=== PATIENT | female | born 1970 | race Hispanic/Latino ===

== ENCOUNTER 2023-09-29 07:57 | Day surgery (SDC) | payer BC ==
[~2023-09-29] VITALS: Ht 147.3 cm; Wt 59.3 kg
[~2023-09-29 07:57] MED LIST: COZAAR25 MG PO; GABAPENTIN100 MG PO; IBLOOD GLUCOSE TEST STRIP 1 EA TEST VI PRN; LACTATED RINGER'S 1,000 ML IV SCH; LIDOCAINE HCL 1% 5 ML SDV INJ ONE; MIDAZOLAM HCL 5 MG/5 ML VIAL IV PRN; fentaNYL citrate 100 MCG/2 ML VIAL IV PRN
[2023-09-29 08:07] VITALS: BP 157/78
--- NOTE | 2023-09-29 08:36 | NUR ---
0810 ASKED PT IF SHE WANTED TO USE AN FLASK CARRIER DUE TO PT BEING SERBIAN SPEAKING. PT DECLINED AND REQUESTED TO USE HER DAUGHTER TO INTERPRET. USED DAUGHTER TO INTERPRET CHECK IN PROCESS.
--- NOTE | 2023-09-29 09:34 | NUR ---
0934 UPDATED PATIENT ON WAIT TIME, PT AND FAMILY UNDERSTANDING.
[2023-09-29] MEDS ORDERED: MIDAZOLAM HCL 5 MG/5 ML VIAL ONE (10:23)
[2023-09-29] MEDS ORDERED: fentaNYL citrate 100 MCG/2 ML VIAL ONE (10:23)
--- NOTE | 2023-09-29 10:57 | NUR ---
09/29/23 Al[place]7 Karen English 1051-PATIENT ARRIVED TO PACU ON 2L NC RR EVEN. PATIENT REACTIVE TO VERBAL STIMULI OPENING EYES REMAINS VERY DROWSY DOZES BACK TO SLEEP. PATIENT LAYING LEFT LATERAL ABDOMEN SOFT. IVF INFUSING.
[2023-09-29 11:43] VITALS: BP 126/86
--- NOTE | 2023-09-29 13:54 | OR ---
[facility] [address], [place] [address] Signed DATE OF OPERATION: 09/29/2023 SURGEON: Sujata Perea MD PREOPERATIVE DIAGNOSIS: Initial screening colonoscopy. POSTOPERATIVE DIAGNOSES: 1. 3 mm polypoid lesion at splenic flexure. 2. Minimal to moderate internal hemorrhoids. PROCEDURE: Colonoscopy with hot biopsy. ESTIMATED BLOOD LOSS: None. INDICATIONS: Alena is a 52-year-old female, who is bilingual along with her daughter. They had been asked to see me in the office for Alena's initial screening colonoscopy. She has no lower GI complaints. There is no family history of colon cancer or polyps. I had given them brochures written in [place]. We looked at that carefully page by page. They understand the nature of the test. There is risk including, but not limited to gas bloating, crampy abdominal pain, bleeding, perforation requiring surgery, and missed diagnosis. We also reviewed the written instructions for the bowel prep line by line. We asked her to hold aspirin 3 days prior to the procedure. She can take her other home medications. She understands an adult person has to take home afterwards. It looks like her daughter Taylor is waiting for her. She had expressed understanding and wished to proceed. DESCRIPTION OF PROCEDURE: Alena was taken into our endoscopy suite and placed in the left lateral decubitus position. She was given a total of 125 mcg of fentanyl and 6 mg of Versed to cover the case. A digital rectal exam was performed and this was unremarkable. She had no external hemorrhoids. There was good sphincter tone. There were no masses. The adult colonoscope had been introduced and advanced under direct visualization of the camera. We were looking down the right colon, but we needed some extra sedation and abdominal compression in order to get the scope down into the cecum itself. Her prep was quite excellent. We could easily see the appendiceal orifice and the ileocecal valve. The scope was then slowly withdrawn. She had a tiny 3 mm polypoid lesion at the splenic Electronically Signed By: SUJATA PEREA MD 09/29/23 1354 PATIENT NAME: ALENA NY OPERATIVE REPORT DATE OF : 70 REPORT #: [id number] PHYSICIAN: SUJATA PEREA MD PCP: ISABELA QUIÑONEZ REPORT IS CONFIDENTIAL AND NOT TO BE RELEASED WITHOUT AUTHORIZATION [facility] [address] [place] [id number] Signed flexure. We went ahead and removed that with hot biopsy forceps for pathologic review. There was no diverticula. Once in the rectum, the scope was retroflexed and she has minimal to moderate internal hemorrhoids. Sujata Perea MD ALB/MODL /[id number] cc: MD Dr. Pedro Caldwell Copies: SUJATA PEREA MD ~ Electronically Signed By: SUJATA PEREA MD 09/29/23 1354 PATIENT NAME: ALENA NY OPERATIVE REPORT DATE OF : 70 REPORT #: [id number] PHYSICIAN: SUJATA PEREA MD PCP: ISABELA QUIÑONEZ REPORT IS CONFIDENTIAL AND NOT TO BE RELEASED WITHOUT AUTHORIZATION
--- NOTE | 2023-10-03 11:42 | PATH ---
[facility] [address] [place], [place] [address] Signed SPECIMEN(S): A SPLENIC FLEXURE COLON POLYP SPECIMEN SOURCE: A. SPLENIC FLEXURE COLON POLYP CLINICAL HISTORY: Screening; post DX: Polyp at splenic flexure FINAL PATHOLOGIC DIAGNOSIS: Splenic flexure polyp, biopsy: - Benign lymphoid polyp. AMB MICROSCOPIC EXAMINATION: Histologic sections of all submitted blocks are examined by light microscopy. These findings, together with the gross examination, support the pathologic diagnosis. GROSS DESCRIPTION: The specimen, labeled and designated "Ventura Sanz, splenic flexure polyp," is received in formalin and consists of one foley soft tissue fragment, 0.1 cm. Entirely submitted in (A1). JS (under the direct supervision of a pathologist) The Gross Description was prepared using a voice recognition system. The report was reviewed for accuracy; however, sound-alike word errors, addition and/or deletions may occur. If there is any question about this report, please contact Client Services. ADDITIONAL NOTES: Immunohistochemical and/or in situ hybridization studies if performed in this case included appropriate positive controls that reacted as expected. This test was developed and its performance characteristics determined by [facility]. It has not been cleared or approved by the U.S. Food and Drug Administration. The FDA has determined that such clearance or approval is not necessary. This test is used for clinical purposes. It should not be regarded as investigational or for research. [facility] is certified under the Clinical Laboratory Improvement Amendments of 1988 (CLIA) as qualified to perform high complexity clinical laboratory testing. PATIENT NAME: ALENA NY PATHOLOGY DATE OF : 70 REPORT #: [id number] PHYSICIAN: GI [facility] PCP: ISABELA QUIÑONEZ REPORT IS CONFIDENTIAL AND NOT TO BE RELEASED WITHOUT AUTHORIZATION [address] [place], [place] [address] Signed PERFORMING LABORATORY: Technical component was performed by [facility], [address] [place] [address] (CLIA# [id number]). Professional interpretation was performed by [facility] [address] [id number] Diagnostician: Taylor Padilla MD Pathologist Electronically Signed 10/03/2023 Copies: ~ PATIENT NAME: ALENA NY PATHOLOGY DATE OF : 70 REPORT #: [id number] PHYSICIAN: GI SLATER PCP: ISABELA QUIÑONEZ REPORT IS CONFIDENTIAL AND NOT TO BE RELEASED WITHOUT AUTHORIZATION
== END 2023-09-29 11:50 | disposition home or self-care (01) ==
LOC: DS 07:57
PROVIDERS: ATTEND Colon & Rectal Surgery
PROC: 0DBE8ZX Excision of Large Intestine, Via Natural or Artificial Opening Endoscopic, Diagnostic (ICD-10-PCS; principal; 2023-09-29 09:25)
DX: Z12.11 Encounter for screening for malignant neoplasm of colon (principal); K63.5 Polyp of colon; K64.8 Other hemorrhoids; I10 Essential (primary) hypertension; M79.2 Neuralgia and neuritis, unspecified; R53.83 Other fatigue; Z79.899 Other long term (current) drug therapy
CPT/HCPCS: 99153; G0500; J2250; J3010